=== PATIENT | male | born 1975 | race Caucasian/White ===

== ENCOUNTER 2018-12-27 12:31 | Day surgery (SDC) | payer OTHER ==
[~2018-12-27 12:31] MED LIST: PROPOFOL 200 MG INJ
[2018-12-27] MEDS ORDERED: LIDOCAINE 100 MG SYRINGE (15:03)
[2018-12-27] MEDS ORDERED: PROPOFOL 60 ML (15:03)
[2018-12-27] MEDS ORDERED: ONDANSETRON 4 MG INJ IV (15:30)
[2018-12-27] MEDS ORDERED: LABETALOL HCL 20MG INJ IV (15:30)
[2018-12-27] MEDS ORDERED: METOCLOPRAMIDE 10 MG INJ IV (15:30)
[2018-12-27] MEDS ORDERED: hydrALAzine 20 MG INJ IV (15:30)
== END 2018-12-27 16:45 | disposition home or self-care (01) ==
LOC: GIL 12:31
DX: K92.1 Melena (principal); K64.0 First degree hemorrhoids; I10 Essential (primary) hypertension
CPT/HCPCS: 45378